=== PATIENT | male | born 1955 | race Caucasian/White ===

== ENCOUNTER 2020-04-15 08:10 | Outpatient (CLI) | payer BC, SELFPAY ==
[2020-04-15 08:20] LABS: Basophils Absolute Auto 0.03 K/mm3 (0.00-0.10); Basophils Percent Auto 0.5 % (0.0-1.0); Eosinophils Absolute Auto 0.12 K/mm3 (0.02-0.50); Eosinophils Percent Auto 1.9 % (1.0-6.0); Immature Granulocyte Absolute 0.03 K/mm3 (0.00-0.00); Immature Granulocyte Percent A 0.5 % (0.0-0.0); Lymphocytes Absolute Auto 1.82 K/mm3 (1.10-4.50); Lymphocytes Percent Auto 28.7 % (18.0-42.0); Mean Corpuscular HGB Conc 33.3 g/dL (32.0-36.0); Mean Corpuscular Hemoglobin 28.8 pg (27.0-31.0); Mean Corpuscular Volume 86.4 fL (78.0-102.0); Mean Platelet Volume 9.7 fl (8.7-11.0); Monocytes Absolute Auto 0.43 K/mm3 (0.10-0.90); Monocytes Percent Auto 6.8 % (2.0-11.0); Neutrophils Absolute Auto 3.9 K/mm3 (1.7-7.2); Neutrophils Percent Auto 61.6 % (50.0-70.0); Platelet Count Result 229 K/mm3 (150-420); Red Blood Count 4.86 M/mm3 (4.70-6.10); Red Cell Distribution Width 13.1 % (11.6-14.4); White Blood Count 6.3 K/mm3 (4.8-10.8)
[2020-04-15 09:33] LABS: Alanine Aminotransferase 46 U/L (16-63); Albumin Level 3.9 g/dL (3.4-5.0); Alkaline Phosphatase 98 U/L (46-116); Anion Gap 12.5 mmol/L (7-16); Aspartate Amino Transferase 20 U/L (15-37); Bilirubin,Total 0.3 mg/dL (0.00-1.00); Blood Urea Nitrogen 20 mg/dL (7-18); Calcium 8.8 mg/dL (8.5-10.1); Carbon Dioxide 30 mmol/L (21-32); Chloride 102 mmol/L (98-108); Estimated Glomerular Filt Rate > 60; Glucose 111 mg/dL (70-99); HDL Direct 39 mg/dL (40-60); Osmolality Calculated 293 mOsm/kg (285-295); Potassium 4.5 mmol/L (3.5-5.1); Prostate Specific Antigen 2.1 ng/mL (< OR = 4.0); Sodium 140 mmol/L (136-145); Thyroid Stimulating Hormone 1.66 uIU/mL (0.36-3.74); Total Protein 7.7 g/dL (6.4-8.2); Triglycerides 208 mg/dL (0-150)
[2020-04-15 09:47] LABS: Cholesterol 212 mg/dL (0-200); LDL Cholesterol Calculated 131 mg/dL (<130)
== END 2020-04-15 08:11 | disposition home or self-care (01) ==
PROVIDERS: PCP Nurse Practitioner Family; Visit Provider Nurse Practitioner Family
DX: R31.9 Hematuria, unspecified (principal); I10 Essential (primary) hypertension; E78.2 Mixed hyperlipidemia; Z12.5 Encounter for screening for malignant neoplasm of prostate; Z13.1 Encounter for screening for diabetes mellitus
CPT/HCPCS: 36415; 80053; 80061; 84153; 84443; 85025; G0103

== ENCOUNTER 2021-02-07 16:49 | Emergency (ER) | payer BC, SELFPAY ==
--- NOTE | ~2021-02-07 | XR_ITS ---
EXAMINATION: XR chest 1V portable EXAM DATE: 02/07/2021 17:13 INDICATION: Shortness of breath and chills. TECHNIQUE: Portable AP frontal chest x-ray was obtained. Comparison is made to prior examination from 03/23/2010. FINDINGS: There is moderate amount of bilateral ill-defined airspace disease, could be pneumonia or e steve. The cardiomediastinal silhouette is prominent but magnified on this AP technique. There is no pneumothorax suspected. There are no pleural effusions. There are no osseous abnormalities identified . IMPRESSION: Moderate amount of bilateral airspace disease likely pneumonia or edema. Recommend testin g for COVID 19. Reviewed, dictated and finalized at location A. IMPRESSION: Moderate amount of bilateral airspace disease likely pneumonia or e steve. Recommend testing for COVID 19.
--- NOTE | 2021-02-07 17:01 | ECG_ITS ---
Measurements Intervals Holder Rate: 78 P: 15 FL: 166 QRS: -18 QRSD: 96 T: 55 QT: 363 QTc: 415 Interpretive Statements SINUS RHYTHM INCOMPLETE RIGHT BUNDLE BRANCH BLOCK CANNOT RULE OUT SEPTAL INFARCT, AGE INDETERMINATE ABNORMAL ECG Electronically Signed On 02-07-2021 20:35:36 CDT by Uvaldo Appiah D.O.
[2021-02-07 17:03] VITALS: BP 141/64; PULSE 81; RESP 18; TEMP 36.1; O2SAT 95
--- NOTE | 2021-02-07 17:29 | ED.SOB ---
HPI - SOB/Dyspnea General Chief Complaint: Shortness of Breath/Dyspnea Stated Complaint: covid +/sob Time Seen by Provider: 02/07/21 17:07 Source: patient Mode of arrival: ambulatory Limitations: no limitations History of Present Illness HPI Narrative: This is a 65-year-old male that presents the emergency department for shortness of breath. Reports he has had cold symptoms over the last week. Reports fever, chills, cough, vomiting, and diarrhea. Reports he tested positive for Covid 4 days ago. Reports he has had worsening shortness of breath which prompted him to be seen. Reports chest pain with coughing. Denies lower extremity edema. Related Data Allergies Allergy/AdvReac Type Severity Reaction Status Date / Time No Known Allergies Allergy Unknown Verified 02/07/21 17:37 Review of Systems Review of Systems: Narrative: CONSTITUTIONAL: Reports fever, chills CARDIOVASCULAR: Reports chest pain. Denies edema. RESPIRATORY: Reports cough and dyspnea. GASTROINTESTINAL: Reports nausea, vomiting, and diarrhea. MUSCULOSKELETAL: Reports myalgia. All systems reviewed & are unremarkable except as noted in HPI and below PMFSH Past Medical History Medical History (Updated 02/07/21 @ 19:25 by Maddie Richardson PA-C) Mixed hyperlipidemia Family History Family History Father Carcinoma of colon Grandparent Family history of lung cancer Diabetes mellitus Sibling Family history of lymphoma Social History Social History Smoking status: Smoker, status unknown Alcohol intake: current Exam Narrative: Exam Narrative: GENERAL: Well-appearing, well-nourished, and in no acute distress. HEAD: Normocephalic, atraumatic. EYES: EOMI. ENT: Nares clear, no rhinorrhea or epistaxis. Mucous membranes moist. Oropharynx without tonsillar hypertrophy exudate or other lesions. Bilateral TMs pearly yanez non-bulging NECK: Supple. No adenopathy or masses. CHEST: Clear to auscultation. No respiratory distress. No wheezes rales or rhonchi HEART: Regular rate and rhythm. No murmur heard. Normal peripheral pulses. ABDOMEN: Soft, nontender, nondistended, normal active bowel sounds. EXTREMITIES: Normal range of motion. No edema. SKIN: Warm, dry, no rash. NEURO: No focal deficits. Alert and oriented x3. PSYCH: Normal mood and affect Course Consultations Consultation #1: Spoke with his primary about work-up as patient might qualify for monoclonal antibody therapy. Patient is to follow-up for this. Date: 02/07/21 Time: 19:25 Vital Signs Vital signs: Vital Signs Temperature 97.0 F L 02/07/21 17:03 Pulse Rate 81 02/07/21 17:03 Respiratory Rate 18 02/07/21 17:03 Blood Pressure 141/64 H 02/07/21 17:03 Pulse Oximetry 95 02/07/21 17:03 Temperature 97.8 F 02/07/21 19:09 Pulse Rate 79 02/07/21 19:09 Respiratory Rate 14 02/07/21 19:09 Blood Pressure 139/72 02/07/21 19:09 Pulse Oximetry 96 02/07/21 19:09 MDM - SOB/Dyspnea MDM Narrative Medical decision making narrative: Patient presents to the emergency department for worsening shortness of breath. Recently diagnosed with Covid. He is afebrile and nontoxic-appearing. Oxygen saturation has remained normal on room air. CBC without leukocytosis. Metabolic panel does show mild transaminitis, likely due to coronavirus. Lactic acid is normal. UA without evidence of infection. D-dimer and troponin are not elevated. EKG without concerning changes. Chest x-ray does show moderate bilateral airspace opacities consistent with Covid pneumonia. Patient lightly hydrated while in the ED. He is stable and felt appropriate for further outpatient evaluation. Spoke with his primary about work-up as patient might qualify for monoclonal antibody therapy. Patient is to follow-up for this. He was given warnings to return to the ER Lab Data Attestation: I reviewed the patient's
[2021-02-07 17:34] VITALS: BP 134/76; PULSE 80; PULSE 81; RESP 12; TEMP 36.6; O2SAT 96
[2021-02-07 17:43] LABS: Hemoglobin 14.1 g/dL (14.0-18.0); Mean Corpuscular HGB Conc 33.6 g/dl (32-36); Mean Corpuscular Hemoglobin 28.1 pg (26-34); Mean Corpuscular Volume 83.7 fl (80-100); Mean Platelet Volume 10.2 fl (7.4-10.4); Platelet Count Result 169 k/mm3 (150-375); Red Blood Count 5.02 M/mm3 (4.6-6.20); Red Cell Distribution Width 13.1 % (11.5-14.5); White Blood Count 5.5 K/mm3 (4.5-10.0)
[2021-02-07 17:48] LABS: INR 0.9; Prothrombin Time 12.3 Seconds (11.1-14.7)
[2021-02-07 17:53] LABS: Lactic Acid Reflex 0.8 mmol/L (0.7-2.1)
[2021-02-07 17:59] LABS: Band Neutrophils Percent 15 % (0-6); Monocytes Absolute Manual 0.22 K/mm3 (0.1-0.90); Monocytes Percent Manual 4 % (3-9); Neutrophils Absolute Manual 4.18 K/mm3 (1.3-6.7); Neutrophils Percent Manual 61 % (46-73); Platelet Estimate Adequate (Adequate); Total Cells Counted 100
[2021-02-07 18:20] LABS: Potassium 4.6 mmol/L (3.4-5.0)
[2021-02-07 18:21] LABS: D Dimer 0.31 ug/mL (<0.48)
[2021-02-07 18:25] LABS: Alanine Aminotransferase 104 U/L (4-50); Albumin Level 4.2 g/dL (3.5-5.1); Alkaline Phosphatase 69 U/L (38-126); Anion Gap 6 mmol/L (8-16); Aspartate Amino Transferase 95 U/L (17-59); Bilirubin,Total 0.2 mg/dL (0.2-1.3); Blood Urea Nitrogen 10 mg/dL (9-20); CRP 7.3 mg/dL (<1.0); Calcium 8.7 mg/dL (8.4-10.2); Carbon Dioxide 32 mmol/L (22-30); Chloride 95 mmol/L (98-107); Estimated CRCL calculation 103 ml/min; Estimated Glomerular Filt Rate > 60; Glucose 116 mg/dL (75-110); Sodium 133 mmol/L (137-145)
[2021-02-07 18:31] LABS: NT Pro B Type Natriuretic Pept 39 PG/ML (5-100); Troponin I < 0.012 ng/mL (0.000-0.034)
[2021-02-07 18:32] VITALS: BP 148/75; PULSE 82; RESP 13; TEMP 36.6; O2SAT 96
[2021-02-07] MEDS: SODIUM CHLORIDE 0.9% IV 500 ML 999 ML IV CONT (19:05)
[2021-02-07 19:06] LABS: Add Urine Microscopic? YES; Appearance Urine Cloudy (Clear); Bacteria Urine Trace /hpf; Bilirubin Urine Negative (Negative); Blood Urine Negative (Negative); Color Urine Yellow (Yellow); Glucose Urine UA Negative (Negative); Ketones Urine Negative (Negative); Leukocyte Esterase Ur Negative LEU/UL (Negative); Mucus Urine Heavy /lpf; Nitrate Urine Negative (Negative); Protein Urine 2+ mg/dL (Negative); RBC Urine 0-2 /hpf (0-2); Specific Grav Ur 1.024 (1.001-1.035); Urobilinogen Urine Negative mg/dL (<2.0); WBC Urine 0-3 /hpf
[2021-02-07 19:09] VITALS: BP 139/72; PULSE 79; RESP 14; TEMP 36.6; O2SAT 96
[2021-02-07 19:52] VITALS: BP 150/80; PULSE 86; RESP 18; TEMP 36.6; O2SAT 96
== END 2021-02-07 19:52 | disposition home or self-care (01) ==
PROVIDERS: Physician Assistant; Emergency Provider Emergency Medicine; PCP Family Medicine
DX: U07.1 COVID-19 (principal); J12.82 Pneumonia due to coronavirus disease 2019; E78.2 Mixed hyperlipidemia; I45.10 Unspecified right bundle-branch block; R94.31 Abnormal electrocardiogram [ECG] [EKG]
CPT/HCPCS: 36415; 71045; 80053; 81001; 83605; 83880; 84484; 85025; 85380; 85610; 85730; 86140; 87040; 93005; 96360; 99284; J7040

== ENCOUNTER 2021-05-18 06:45 | Outpatient (CLI) | payer MEDICARE, SELFPAY ==
[2021-05-18 07:57] LABS: Glucose 111 mg/dL (75-110)
[2021-05-21 12:49] LABS: Testosterone Free 44.1 pg/mL (35.0-155.0); Testosterone Total 191 ng/dL (250-1100)
== END 2021-05-18 06:46 | disposition home or self-care (01) ==
LOC: ANHLAB 06:49
PROVIDERS: PCP Family Medicine; Visit Provider Nurse Practitioner Family
DX: R73.09 Other abnormal glucose (principal)
CPT/HCPCS: 36415; 82947; 84402; 84403

== ENCOUNTER → 2021-05-21 02:27 | Outpatient (CLI) | payer MEDICARE, SELFPAY ==
[2021-05-21 17:20] LABS: SARS-CoV-2 RNA PCR Negative
== END ==
PROVIDERS: PCP Family Medicine; Visit Provider Internal Medicine Gastroenterology
DX: Z01.812 Encounter for preprocedural laboratory examination (principal); Z20.822 Contact with and (suspected) exposure to COVID-19
CPT/HCPCS: C9803; U0003; U0005

== ENCOUNTER 2021-05-24 02:30 | Day surgery (SDC) | payer MEDICARE, SELFPAY ==
[2021-05-03 11:46] VITALS: BMI 31.6
[2021-05-24 06:56] VITALS: BP 177/83; PULSE 69; RESP 20; TEMP 35.9; O2SAT 99; BMI 31.3
[2021-05-24] MEDS: LACTATED RINGERS 1,000 ML 150 ML IV CONT (07:11)
--- NOTE | 2021-05-24 07:15 | WPDANESEPPF ---
Anes - Initial Pre Proc Eval Procedure: Operation Date: 05/24/21 08:00 Proposed Procedures p Screening Colonoscopy - Stewart Smart MD Date/Time: 05/24/21 07:15 Surgeon: Stewart Smart MD Pre Op Diagnosis: neoplasm screening Patient Data Age: 66 Gender: M Height: 1.83 m Weight: 104.8 kg Last Vital Signs Temp 35.9 C L 05/24/21 06:56 Pulse 69 05/24/21 06:56 Resp 20 05/24/21 06:56 BP 177/83 H 05/24/21 06:56 Pulse Ox 99 05/24/21 06:56 Allergies Allergy/AdvReac Type Severity Reaction Status Date / Time No Known Allergies Allergy Unknown Verified 05/24/21 06:55 Home Medications Medication Instructions Recorded Confirmed Type No Home Medications 05/24/21 05/24/21 History Patient hx anesthesia problems: none Family hx anesthesia problems: none PMFSH Past Medical History Medical History Apnea BMI 31.0-31.9,adult Mixed hyperlipidemia Screen for colon cancer Screening for lipid disorders Family History Family History Father Carcinoma of colon Grandparent Family history of lung cancer Diabetes mellitus Sibling Family history of lymphoma Social History Social History Smoking packs per day: 0.5 Smoking cigarettes per day: 10.0 Years smoked: 20 Smoking pack-years: 10.00 Smoking status: Former smoker Alcohol intake: current Drinks per week: 10 Substance use: current Substance use type: marijuana Living arrangements: with family Spiritual care concerns: No Anes - Eval Final PreProcedure Day of Procedure 05/24/21 07:15 Patient weight: obese Heart: regular rate and rhythm Lungs: clear to auscultation Airway: Mallampati scale class 1 Neurological: alert and oriented Last oral intake: >/= 8 hours ASA classification: II Emergent: no Anesthetic plan: proceed Anesthesia type and monitoring: general GIVS and standard monitoring Informed Consent: The patient's anesthetic plan and its attendant risks and benefits were discussed with the patient/family/POA. Questions were solicited and answers provided to the satisfaction of the patient/family/POA.
--- NOTE | 2021-05-24 07:44 | PM.HPGS ---
History of Present Illness History of Present Illness Consent: Risks, benefits, and alternatives have been discussed and questions answered. Patient agrees to proceed with procedure. Chief complaint: neoplasm screening Narrative: Nikolay Ragland is a 66 year old male Referred for colon cancer screening Review of Systems Review of Systems: All systems reviewed & are unremarkable except as noted in HPI and below PMFSH Past Medical History Medical History Apnea BMI 31.0-31.9,adult Mixed hyperlipidemia Screen for colon cancer Screening for lipid disorders Family History Family History Father Carcinoma of colon Grandparent Family history of lung cancer Diabetes mellitus Sibling Family history of lymphoma Social History Social History Smoking packs per day: 0.5 Smoking cigarettes per day: 10.0 Years smoked: 20 Smoking pack-years: 10.00 Smoking status: Former smoker Alcohol intake: current Drinks per week: 10 Substance use: current Substance use type: marijuana Living arrangements: with family Spiritual care concerns: No Meds Home Medications and Allergies Home Medications Medication Instructions Recorded Confirmed Type No Home Medications 05/24/21 05/24/21 History Allergies Allergy/AdvReac Type Severity Reaction Status Date / Time No Known Allergies Allergy Unknown Verified 05/24/21 06:55 Vital Signs Vital Signs - 24 hr 05/24/21 06:56 Temperature 35.9 C L Pulse Rate 69 Respiratory Rate 20 Blood Pressure 177/83 H Pulse Oximetry 99 Exam Const: General: alert Orientation/consciousness: patient oriented x3 Resp: Auscultation: clear to auscultation bilaterally Cardio: Rhythm: regular rhythm GI: GI Palp: Yes Soft to palpation and No Tenderness to palpation present (GI) Neuro: General: patient oriented x3 Assessment and Plan Assessment and plan (1) Screen for colon cancer: Code(s): Z12.11 - Encounter for screening for malignant neoplasm of colon Status: Acute Assessment and Plan: Colonoscopy with possible biopsy or polypectomy or cautery or injection of substances.
[2021-05-24] MEDS: SIMETHICONE ORAL SUSPENSION 20 MG/0.3 ML 30 ML BOTTLE 0.6 ML IRRIGATION (08:08)
[2021-05-24 08:19] VITALS: BP 125/66; PULSE 61; RESP 15; O2SAT 94
[2021-05-24 08:29] VITALS: BP 126/75; PULSE 64; RESP 20; O2SAT 95
[2021-05-24 08:39] VITALS: BP 135/76; PULSE 62; RESP 11; O2SAT 97
== END 2021-05-24 09:03 | disposition home or self-care (01) ==
PROVIDERS: PCP Family Medicine; Visit Provider Internal Medicine Gastroenterology
PROC: 0DJD8ZZ Inspection of Lower Intestinal Tract, Via Natural or Artificial Opening Endoscopic (ICD-10-PCS; CPT 45378; principal; 2021-05-24 08:00)
DX: Z12.11 Encounter for screening for malignant neoplasm of colon (principal); K57.30 Diverticulosis of large intestine without perforation or abscess without bleeding; K62.1 Rectal polyp; E78.2 Mixed hyperlipidemia; Z87.891 Personal history of nicotine dependence; F12.90 Cannabis use, unspecified, uncomplicated; E66.9 Obesity, unspecified; Z68.31 Body mass index [BMI] 31.0-31.9, adult
CPT/HCPCS: 45385; 88305; C9803; J2001; J2704; J7120; U0003; U0005

== ENCOUNTER → 2021-12-01 10:14 | Outpatient (CLI) | payer MEDICARE, SELFPAY ==
--- NOTE | ~2021-12-01 | XR_ITS ---
XR lumbar spine 2-3V DATE: 12/01/2021 10:37 INDICATION: Low back pain, sciatica TECHNIQUE: AP, lateral, coned lateral lumbosacral views COMPARISON: None FINDINGS: There is diffuse osteopenia. There is moderately prominent degenerative disc disease at L5-S1 with minimal retrolisthesis. The lum bar interspaces otherwise are well preserved. No fracture or bone destruction or spondylolisthesis. The included lower thoracic and lumbar pedicles are intact. The sacroiliac joints appear normal. IMPRESSION: Moderately prominent degenerative disc disease and minimal retrolisthesis at L5-S1 Reviewed, dictated and finalized at location A. SETTER IMPRESSION: Moderately prominent degenerative disc disease and minimal retrolis thesis at L5-S1
== END ==
PROVIDERS: PCP Nurse Practitioner Family; Visit Provider Nurse Practitioner Family
DX: M54.40 Lumbago with sciatica, unspecified side (principal); M47.817 Spondylosis without myelopathy or radiculopathy, lumbosacral region
CPT/HCPCS: 72100

== ENCOUNTER 2021-12-14 08:59 | Outpatient (RCR) | payer MEDICARE, SELFPAY ==
--- NOTE | 2021-12-14 10:13 | PTOPEVAL ---
Thank you for referring Nikolay Ragland to [facility].? The patient is scheduled to be seen for therapy? ____x/week for ___ weeks. Please review, sign, date and return this plan of care TATY. I agree with and certify that the following plan of care is medically necessary. Referring Physician Date Admitting Provider: Attending Provider: Jerica Viveros NP Referring Provider: YOLANDE Outpatient Evaluation Start: 12/14/21 08:34 Freq: Status: Active Protocol: Document 12/14/21 09:03 ACR (Rec: 12/14/21 10:12 ACR [id number]) Therapy Assessment Status Assessment Status Assessment Status Evaluation Outpatient Past Medical History Neurological History Hx Neurological Disorders No Significant History Cardiovascular History Hx Hypercholesterolemia Yes Hx Hypertension Yes Respiratory History Hx Bronchitis Yes Gastrointestinal History Hx Hepatitis Yes Genitourinary History Hx Benign Prostatic Hyperplasia Yes Musculoskeletal History Hx Arthritis Yes Hematological History Hx Hematological Disorders No Significant History Endocrine History Hx Endocrine Disorders No Significant History HEENT History Hx HEENT Disorders No Significant History Integumentary History Hx Shingles Yes Reproductive History Hx Reproductive Disorders No Significant History Psychosocial History Hx Depression Yes Pain History History of Any Previous or Ongoing No Significant History Instance of Pain Anesthesia History Hx Anesthesia Reactions No Significant History Evaluation Information Problem Diagnosis LBP, L sciatica Onset 12/04/21 Subjective Information Patient states that since the Query Text:As Reported By Patient/ end of October he has had Family back pain and some sciatic like symptoms. He states that he was moving a [employer] and thinks his pain could have started from that. He states that he has difficulty putting on his socks, sit for a period of time, and sleeping . He states that the only way he can sleep is when he takes his pain medication. He states that he stretches throughout the day and it helps a little bit, but the pain is constant. He states that walking is when his back feels the best.
== END 2022-01-18 23:59 | disposition home or self-care (01) ==
LOC: CHSPT 08:59
PROVIDERS: Visit Provider Nurse Practitioner Family
DX: M54.40 Lumbago with sciatica, unspecified side (principal)
CPT/HCPCS: 97012; 97014; 97110; 97140; 97161; G0283

== ENCOUNTER 2022-12-17 04:54 | Emergency (ER) | payer MEDICARE, SELFPAY ==
[2022-12-17 05:01] VITALS: BP 180/90; PULSE 90; RESP 20; TEMP 36.6; O2SAT 99
[2022-12-17 05:15] LABS: Add Urine Microscopic? YES; Appearance Urine Clear (Clear); Bilirubin Urine Negative (Negative); Blood Urine 2+ (Negative); Color Urine Light Yellow (Yellow); Glucose Urine UA Negative (Negative); Ketones Urine Negative (Negative); Leukocyte Esterase Ur Negative (Negative); Nitrate Urine Negative (Negative); Protein Urine Negative (Negative); Specific Grav Ur <= 1.005 (1.010-1.020); Urobilinogen Urine 0.2 mg/dL (0.2-1.0); pH Urine 5.5 (5.0-8.0)
[2022-12-17 05:21] LABS: Bacteria Urine None seen /hpf; Squamous Epithelial Cell Urine None seen /hpf (Few); WBC Urine 0-3 /hpf (0-3)
[2022-12-17 05:24] VITALS: BP 140/90; PULSE 90; RESP 20; O2SAT 97
--- NOTE | 2022-12-17 05:35 | ED.MALEGU ---
HPI - Male Genitourinary General Chief complaint: Urogenital-Male Stated complaint: Urinary Retention Source: patient Mode of arrival: ambulatory Limitations: no limitations History of Present Illness HPI Narrative: 67 year old male presents to the Emergency Department complaining of unable to urinate. Has been dribbling small amounts since last night. Onset (ago): hour(s) Severity: severe Relieving factors: urination Exacerbating factors: none Associated symptoms: Reports denies other symptoms Related Data Sexually active: No Allergies Allergy/AdvReac Type Severity Reaction Status Date / Time No Known Allergies Allergy Unknown Verified 12/20/21 10:59 Review of Systems Review of Systems: All systems reviewed & are unremarkable except as noted in HPI and below Constitutional: Constitutional: Reports as per HPI, Denies chills and Denies fever(s) Eyes: Eyes: Reports as per HPI and Reports no additional eye complaints ENT: Reports system reviewed and no additional complaints, except as documented Cardiovascular: Cardiovascular: Reports as per HPI and Denies chest pain Respiratory: Respiratory: Reports as per HPI and Denies dyspnea Gastrointestinal: Gastrointestinal: Reports as per HPI, Reports abdominal pain, Denies diarrhea, Denies nausea and Denies vomiting Genitourinary: Genitourinary: Reports no additional male genitourinary complaints and Reports oliguria Comments: unable to urinate Musculoskeletal: Musculoskeletal: Reports no additional musculoskeletal complaints, Denies back pain and Denies myalgias Integumentary/Breasts: Skin/Breast: Reports system reviewed and no additional complaints, except as docu and Denies rash Neurologic: Reports system reviewed and no additional complaints, except as documented, Denies focal weakness, Denies numbness and Denies weakness Psychiatric: Psychiatric: Reports no additional psychiatric complaints Endocrine: Endocrine: Reports no additional endocrine complaints Hematologic/Lymphatic: Hematologic/Lymphatic: Reports no additional hematologic/lymphatic complaints Allergic/Immunologic: Allergic/Immunologic: Reports no additional allergic/immunologic complaints [facility] Past Medical History Medical History Apnea BMI 28.0-28.9,adult BMI 30.0-30.9,adult BMI 31.0-31.9,adult Mixed hyperlipidemia Screen for colon cancer Screening for lipid disorders Family History Family History Father Carcinoma of colon Grandparent Family history of lung cancer Diabetes mellitus Sibling Family history of lymphoma Mother Cerebrovascular accident Sibling Heart disease Social History Social History Smoking packs per day: 0.5 Smoking cigarettes per day: 10.0 Years smoked: 20 Smoking pack-years: 10.00 Second hand tobacco smoke exposure: Yes Alcohol intake: current Drinks per week: 10 Substance use: current Substance use type: marijuana Living arrangements: alone Occupation/Education: retired Additional occupation/education comments: [employer] Gender identity (if verbalized by the patient): Male Spiritual care concerns: No Exam Const: General: healthy appearing Nutritional Appearance: obese Limitations: no limitations HENMT: Head: normal to inspection Face/Nose/Sinus: Normal external nose present Face and sinus: normal facial exam Mouth: Yes Normal oral and palatal mucosa present Eyes: Conjunctivae: conjunctivae normal Pupils: Equal, round and reactive pupils present EOM: EOMs intact bilaterally Direct Ophthalmoscopy: no photophobia Neck: Neck: normal visual inspection Chest: Chest palpation & inspection: normal inspection of the chest Resp: Effort & Inspection: normal respiratory effort Cardio: Rate: regular rate GI: GI Palp: Yes
[2022-12-17 05:54] VITALS: BP 138/90; PULSE 89; RESP 18; TEMP 37.2; O2SAT 98
== END 2022-12-17 05:58 | disposition home or self-care (01) ==
PROVIDERS: Emergency Provider Emergency Medicine; PCP Family Medicine
DX: R33.9 Retention of urine, unspecified (principal); E78.2 Mixed hyperlipidemia; I10 Essential (primary) hypertension; F17.210 Nicotine dependence, cigarettes, uncomplicated
CPT/HCPCS: 51702; 81001; 99283

== ENCOUNTER 2022-12-17 13:53 | Emergency (ER) | payer MEDICARE, SELFPAY ==
[2022-12-17 14:10] VITALS: BP 198/82; PULSE 100; RESP 18; TEMP 36.6; O2SAT 97
--- NOTE | 2022-12-17 14:24 | PC.NURSE ---
Irrigated bladder with 120 ml of normal saline. Catheter emptied 120 ml of fluid
--- NOTE | 2022-12-17 14:25 | ED.MALEGU ---
HPI - Male Genitourinary General Chief complaint: Urogenital-Male Stated complaint: catheter issues Time Seen by Provider: 12/17/22 14:09 History of Present Illness HPI Narrative: Patient is a 67-year-old male here for evaluation of his Singh catheter. Patient states that he had the Singh catheter placed in the ER at [place] yesterday due to urinary retention. States that at that time he was unable to urinate over the past day and had over 1000 cc of fluid in his bladder. He had the Singh placed with great improvement of his symptoms and was told to follow-up with his PCP. Patient has never had a catheter in the past. He presents today due to concerns over catheter placement. Patient states that when he attempts to push out urine urine does not drain. Catheter has been draining spontaneously but he is concerned that this is not timed with his attempts at pushing out urine. He denies any abdominal pain, fevers or chills, nausea or vomiting. Related Data Allergies Allergy/AdvReac Type Severity Reaction Status Date / Time No Known Allergies Allergy Unknown Verified 12/20/21 10:59 [facility] Past Medical History Medical History Apnea BMI 28.0-28.9,adult BMI 30.0-30.9,adult BMI 31.0-31.9,adult Mixed hyperlipidemia Screen for colon cancer Screening for lipid disorders Family History Family History Father Carcinoma of colon Grandparent Family history of lung cancer Diabetes mellitus Sibling Family history of lymphoma Mother Cerebrovascular accident Sibling Heart disease Social History Social History Smoking packs per day: 0.5 Smoking cigarettes per day: 10.0 Years smoked: 20 Smoking pack-years: 10.00 Second hand tobacco smoke exposure: Yes Alcohol intake: current Drinks per week: 10 Substance use: current Substance use type: marijuana Living arrangements: alone Occupation/Education: retired Additional occupation/education comments: [employer] Gender identity (if verbalized by the patient): Male Spiritual care concerns: No Exam Narrative: APPEARANCE: Well appearing, no pain in distress, well-nourished. Head: Normocephalic and atraumatic. EYES: PERRLA/EOMI, conjunctivae clear NOSE: No nasal drainage EARS: External ear normal in appearance THROAT: Oropharynx is clear. Mucous membranes are moist. NECK: Supple. No adenopathy, no masses. RESPIRATORY: Airway patent, respirations nonlabored. Clear to auscultation bilaterally, no rales, rhonchi, wheezing. : Catheter in place draining yellow urine. CARDIOVASCULAR: Regular rate and rhythm without murmurs, rubs, or gallops. ABDOMINAL: Normoactive bowel sounds. Soft, nontender, nondistended. No rebound tenderness or guarding. MUSCULOSKELETAL: Extremities are warm and well-perfused. Moves all extremities well. No edema. NEURO: Normal speech. No focal neurologic deficits. SKIN: Skin is warm and dry. No rashes. PSYCHIATRIC: Normal affect/mood.. Course Vital Signs Vital signs: Vital Signs Temperature 97.9 F 12/17/22 14:10 Pulse Rate 100 12/17/22 14:10 Respiratory Rate 18 12/17/22 14:10 Blood Pressure 198/82 H 12/17/22 14:10 Pulse Oximetry 97 12/17/22 14:10 Oxygen Delivery Room Air 12/17/22 14:10 Temperature 97.9 F 12/17/22 14:10 Pulse Rate 100 12/17/22 14:10 Respiratory Rate 18 12/17/22 14:10 Blood Pressure 198/82 H 12/17/22 14:10 Pulse Oximetry 97 12/17/22 14:10 Oxygen Delivery Room Air 12/17/22 14:10 MDM - Male Genitourinary MDM Narrative Medical decision making narrative: 67-year-old male here due to concerns over incomplete singh empyting. His Singh is draining here, it was flushed with good return, bladder scan reveals less than 20 cc of fluid in the bladder. Educated patient
== END 2022-12-17 14:38 | disposition home or self-care (01) ==
LOC: ANHED 14:29
PROVIDERS: Emergency Provider Emergency Medicine; PCP Family Medicine
DX: Z46.6 Encounter for fitting and adjustment of urinary device (principal); E78.2 Mixed hyperlipidemia; I10 Essential (primary) hypertension; F17.210 Nicotine dependence, cigarettes, uncomplicated
CPT/HCPCS: 99282

== ENCOUNTER 2023-03-21 08:48 | Emergency (ER) | payer MEDICARE, SELFPAY ==
[2023-03-21 08:54] VITALS: BP 156/95; PULSE 75; RESP 17; TEMP 36.6; O2SAT 96
--- NOTE | 2023-03-21 09:05 | ED.GENADULT ---
HPI - General Adult General Chief complaint: Back Pain/Injury Stated complaint: Back pain Time Seen by Provider: 03/21/23 09:00 Source: patient Mode of arrival: ambulatory Limitations: no limitations History of Present Illness HPI narrative: 68-year-old white male complains of chronic back pain he aggravated the 2 weeks ago. Her raise to his left leg was worse last night 8/ he has been taking Tylenol and ibuprofen. Saw the chiropractor yesterday and got some manipulation and acupuncture. Denies any numbness tingling weakness problems voiding. denies any rash or itching bleeding or bruising lumps or bumps cough fever sore throat runny nose. Review of old records showed he was at the urologist's and his primary care doctor's office earlier in February for urinary retention after taking some cocaine. No new problems urinating now. Related Data Allergies Allergy/AdvReac Type Severity Reaction Status Date / Time No Known Allergies Allergy Unknown Verified 03/21/23 08:53 [facility] Past Medical History Medical History (Updated 03/21/23 @ 09:22 by Kvng Huddleston MD) Apnea BMI 28.0-28.9,adult BMI 30.0-30.9,adult BMI 31.0-31.9,adult Mixed hyperlipidemia Screen for colon cancer Screening for lipid disorders Strain of lumbar region Family History Family History Father Carcinoma of colon Grandparent Family history of lung cancer Diabetes mellitus Sibling Family history of lymphoma Mother Cerebrovascular accident Sibling Heart disease Social History Social History Smoking packs per day: 0.5 Smoking cigarettes per day: 10.0 Years smoked: 20 Smoking pack-years: 10.00 Smoking status: Former smoker Second hand tobacco smoke exposure: Yes Alcohol intake: current Drinks per week: 10 Substance use: current Substance use type: marijuana Living arrangements: alone Occupation/Education: retired Additional occupation/education comments: [employer] Gender identity (if verbalized by the patient): Male Spiritual care concerns: No Exam Narrative: White male no apparent distress.? Normocephalic atraumatic eyes conjunctiva pink sclera nonicteric.? Neck is supple no lymphadenopathy nontender full range of motion.? Back is nontender.? Chest nontender.? Lungs are clear without wheezes rales or rhonchi.? Heart is regular rate rhythm without murmurs gallops or rubs.? Extremities no cyanosis clubbing or edema.? Neurological she is alert and oriented x4 motor and sensory grossly intact.? Skin is warm and dry without lesions. Back nontender full range of motion deep tender reflexes are +2 for lower extremities. Course Vital Signs Vital signs: Vital Signs Temperature 36.6 C 03/21/23 08:54 Pulse Rate 75 03/21/23 08:54 Respiratory Rate 17 03/21/23 08:54 Blood Pressure 156/95 H 03/21/23 08:54 Pulse Oximetry 96 03/21/23 08:54 Oxygen Delivery Room Air 03/21/23 08:54 Temperature 36.6 C 03/21/23 08:54 Pulse Rate 75 03/21/23 08:54 Respiratory Rate 17 03/21/23 08:54 Blood Pressure 156/95 H 03/21/23 08:54 Pulse Oximetry 96 03/21/23 08:54 Oxygen Delivery Room Air 03/21/23 08:54 Medical Decision Making MDM Narrative Medical decision making narrative: Independent Historian: Differential Dx includes but not limited to: LS strain acute on chronic back pain, degenerative disc disease, slip disc Independently Reviewed by me: External Source Review: old records from primary care office was reviewed Shared decision Making: discussed evaluation all questions were asked and answered and patient agree with plan Discussed with patient given Toradol shot 30 mg IM Vital Signs Vital Signs: Vital Signs Temperature 36.6 C 03/21/23 08:54 Pulse Rate 75 03/21/23 08:54 Respiratory Rate 17 0
[2023-03-21] MEDS: KETOROLAC 30 MG/ML VIAL (*BKC) IM (09:19)
[2023-03-21 09:35] VITALS: BP 153/77; PULSE 67; RESP 17; TEMP 36.7; O2SAT 95
== END 2023-03-21 09:35 | disposition home or self-care (01) ==
PROVIDERS: Emergency Provider Emergency Medicine; PCP Family Medicine
DX: S39.012A Strain of muscle, fascia and tendon of lower back, initial encounter (principal); M54.42 Lumbago with sciatica, left side; E78.2 Mixed hyperlipidemia; Z87.891 Personal history of nicotine dependence; X58.XXXA Exposure to other specified factors, initial encounter
CPT/HCPCS: 96372; 99283; J1885

== ENCOUNTER 2023-03-27 03:26 | Emergency (ER) | payer MEDICARE, SELFPAY ==
--- NOTE | ~2023-03-27 | CT_ITS ---
Noncontrast CT scan of the lumbar spine CLINICAL HISTORY: Back pain TECHNIQUE: Axial noncontrast imaging of the lumbar spine was performed. Sagittal and coronal reformat paco images were constructed. Dose reduction technique was used on this scan by utilizing automated ex posure control and iterative reconstruction technique. The dose-length product (DLP) was 1130.53 mGy- cm. FINDINGS: There is no fracture of the lumbar spine. Minimal grade 1 retrolisthesis of L5 over S1 note d. Intervertebral disc spaces are relatively well preserved throughout the lumbar spine. At L1-L2, there is no disc bulge or herniation. There is minimal facet joint degenerative change. No spinal canal stenosis or neural foraminal narrowing. At L2-L3, there is no significant disc bulge or herniation. There is minimal facet joint degenerative change. No spinal canal stenosis or neural foraminal narrowing identified. At L3-L4, there is no significant disc bulge or herniation. There is no spinal canal stenosis or neur al foraminal narrowing. At L4-L5, there is probable minimal disc bulge and mild facet arthropathy. No pippa spinal canal sten osis. There is mild to moderate left neural foraminal narrowing. Right neural foramen preserved. At L5-S1, there is minimal disc bulge. No spinal canal stenosis. There is moderate to severe bilatera l neural foraminal narrowing, left worse than right. Paravertebral soft tissues are unremarkable. Impression: Moderate to severe bilateral neural foraminal narrowing at L5-S1, left worse than right. Mild to moderate left neural foraminal narrowing at L4-L5. Reviewed, dictated and finalized at [facility]. Impression: Moderate to severe bilateral neural foraminal narrowing at L5-S1, left worse th an right. Mild to moderate left neural foraminal narrowing at L4-L5.
[2023-03-27 03:29] VITALS: BP 175/103; PULSE 84; RESP 18; TEMP 36.4; O2SAT 96
--- NOTE | 2023-03-27 03:55 | ED.GENADULT ---
HPI - General Adult General Chief complaint: Back Pain/Injury Stated complaint: Back Pain Time Seen by Provider: 03/27/23 03:30 History of Present Illness HPI narrative: the patient is a 68-year-old male with history of low back pain or for some time, with acute exacerbations most recently starting March 10, 2023. He saw a chiropractor on March 20, 2023 and had acupuncture therapy. He continued to have pains he was seen in the emergency room on 03/21/2023. At that time, he received a Toradol injection and was discharged home on prednisone and tramadol. He did have diclofenac from a previous prescription. He has been using those, prednisone tramadol and diclofenac for the last week without much relief of his pain. The pain originates in the lower back and radiates down the left leg with associated tingling and numbness extending to the left ankle. The pain is constant, waxes and wanes in intensity. He did lift some brush several weeks ago which may have exacerbated his pain. No falls or trauma to that area. Is due to see his primary care provider in 1 weeks time for further management of this. No saddle anesthesia. No incontinence of urine or stool to suggest cauda equina syndrome. He did drive himself here to the ED tonight. Related Data Allergies Allergy/AdvReac Type Severity Reaction Status Date / Time No Known Allergies Allergy Unknown Verified 03/27/23 03:29 Review of Systems Review of Systems: All systems reviewed & are unremarkable except as noted in HPI and below Constitutional: Constitutional: Denies chills, Denies excessive sweating, Denies fatigue, Denies fever(s), Denies headache(s) and Denies weakness Eyes: Eyes: Denies change in vision and Denies photophobia ENT: Denies dysphagia, Denies dizziness, Denies headache(s), Denies lip swelling, Denies nasal congestion, Denies sore throat and Denies tongue swelling Cardiovascular: Cardiovascular: Denies chest pain, Denies syncope, Denies rapid heart rate and Denies dyspnea Respiratory: Respiratory: Denies cough, Denies dyspnea and Denies wheezing Gastrointestinal: Gastrointestinal: Denies abdominal pain, Denies constipation, Denies dysphagia, Denies diarrhea, Denies nausea and Denies vomiting Genitourinary: Genitourinary: Denies hematuria, Denies dysuria, Denies urinary frequency and Denies urinary urgency Musculoskeletal: Musculoskeletal: Reports back pain (with sciatica down left leg), Denies myalgias, Denies arthralgias, Denies joint swelling and Reports numbness (from left back pain) Integumentary/Breasts: Skin/Breast: Denies pruritus, Denies erythema and Denies rash Neurologic: Denies confusion, Denies dizziness, Denies syncope, Denies headache(s), Denies focal weakness, Reports numbness (from left sided sciatica) and Denies weakness Psychiatric: Psychiatric: Denies anxiety and Denies confusion Endocrine: Endocrine: Denies excessive sweating and Denies fatigue Hematologic/Lymphatic: Hematologic/Lymphatic: Denies easy bleeding and Denies easy bruising Allergic/Immunologic: Allergic/Immunologic: Denies lip swelling, Denies tongue swelling and Denies wheezing PMFSH Past Medical History Medical History Apnea BMI 28.0-28.9,adult BMI 30.0-30.9,adult BMI 31.0-31.9,adult Mixed hyperlipidemia Screen for colon cancer Screening for lipid disorders Strain of lumbar region Family History Family History Father Carcinoma of colon Grandparent Family history of lung cancer Diabetes mellitus Sibling Family history of lymphoma Mother Cerebrovascular accident Sibling Heart disease Social History Social History Smoking packs per day: 0.5 Smoking cigarettes per day: 10.0 Years smoked: 20 Smoking pack-years: 10.00 Smoking status: Former smoker [facility]
[2023-03-27] MEDS: KETOROLAC (*BKC) 60 MG/2 ML VIAL IM (04:02)
[2023-03-27] MEDS: ORPHENADRINE CITRATE 30 MG/ML 2 ML VIAL 60 MG IM (04:08)
[2023-03-27] MEDS: HYDROmorphone HCL INJ (*CRX) 2 MG/ML VIAL 1 MG IM (04:44)
--- NOTE | 2023-03-27 05:21 | PC.NURSE ---
Pt c/o continued 10/10 pain after IM toradol, norflex, and dilaudid. Dr. Recinos aware. Verbal orders received for 1mg Dilaudid IV, 4mg Zofran IV, and a lumbar CT without contrast.
[2023-03-27] MEDS: ONDANSETRON INJ 4 MG/2 ML VIAL IV PUSH (05:31)
[2023-03-27] MEDS: HYDROmorphone HCL INJ (*CRX) 2 MG/ML VIAL 1 MG IV PUSH (05:31)
[2023-03-27 05:44] VITALS: BP 172/91; PULSE 82; RESP 18; O2SAT 98
== END 2023-03-27 06:38 | disposition home or self-care (01) ==
PROVIDERS: Emergency Provider Emergency Medicine; PCP Family Medicine
DX: M54.42 Lumbago with sciatica, left side (principal); E78.2 Mixed hyperlipidemia; Z87.891 Personal history of nicotine dependence
CPT/HCPCS: 72131; 96372; 96374; 96375; 99284; J1170; J1885; J2360; J2405

== ENCOUNTER 2023-03-28 09:15 | Emergency (ER) | payer MEDICARE, SELFPAY ==
[2023-03-28 09:18] VITALS: BP 167/86; PULSE 96; RESP 18; TEMP 36.6; O2SAT 93
--- NOTE | 2023-03-28 09:23 | ED.BACK ---
HPI - Back Pain/Injury General Chief Complaint: Back Pain/Injury Stated Complaint: back pain Time Seen by Provider: 03/28/23 09:19 Source: patient Mode of arrival: ambulatory Limitations: no limitations History of Present Illness HPI Narrative: This is a 68-year-old male with HTN, chronic back pain, depression who presents to the ED with chief complaint of low back pain radiating into the left lower extremity. He states this is been going on for several weeks. He has had problems with this in the distant past and resolved with physical therapy. Per chart review patient was seen at another ED yesterday and given Dilaudid and went home after that. He had a CT scan showing degenerative changes. He was advised to follow-up with PCP. Patient states he is unable to get in with his PCP for another week and is seeking pain relief. He again is not having any bowel incontinence, urinary retention, fevers, chills, numbness, weakness, saddle anesthesia. Related Data Allergies Allergy/AdvReac Type Severity Reaction Status Date / Time No Known Allergies Allergy Unknown Verified 03/27/23 03:29 Review of Systems Review of Systems: CONSTITUTIONAL: Denies fever, chills, or sweats. EYES: Denies visual changes, redness, or discharge. ENT: Denies rhinorrhea, congestion, sore throat, or otalgia. CARDIOVASCULAR: Denies chest pain, palpitations, or edema. RESPIRATORY: Denies cough or dyspnea. GASTROINTESTINAL: Denies abdominal pain, nausea, vomiting, or diarrhea. GENITOURINARY: Denies dysuria or hematuria. SKIN: Denies rash or itching. MUSCULOSKELETAL: See HPI NEUROLOGIC: Denies headache, numbness, dizziness, or weakness. PSYCHIATRIC: Denies anxiety or depression. COUNT INCLUDES THE [facility] Past Medical History Medical History Apnea BMI 28.0-28.9,adult BMI 30.0-30.9,adult BMI 31.0-31.9,adult Mixed hyperlipidemia Screen for colon cancer Screening for lipid disorders Strain of lumbar region Family History Family History Father Carcinoma of colon Grandparent Family history of lung cancer Diabetes mellitus Sibling Family history of lymphoma Mother Cerebrovascular accident Sibling Heart disease Social History Social History Smoking packs per day: 0.5 Smoking cigarettes per day: 10.0 Years smoked: 20 Smoking pack-years: 10.00 Smoking status: Former smoker Second hand tobacco smoke exposure: Yes Alcohol intake: current Drinks per week: 10 Substance use: current Substance use type: marijuana Living arrangements: alone Occupation/Education: retired Additional occupation/education comments: [employer] Gender identity (if verbalized by the patient): Male Spiritual care concerns: No Exam Narrative: GENERAL: Well-appearing, well-nourished, and in no acute distress. HEAD: Normocephalic, atraumatic. EYES: PERRLA and EOMI. ENT: Nares clear, no rhinorrhea or epistaxis. Mucous membranes moist. Oropharynx without tonsillar hypertrophy exudate or other lesions. NECK: Supple. No adenopathy or masses. CHEST: No respiratory distress. Clear to auscultation. No wheezes rales or rhonchi HEART: Regular rate and rhythm. No murmur heard. Normal peripheral pulses. ABDOMEN: Soft, nontender, nondistended, normal active bowel sounds. EXTREMITIES/SPINE: Right lumbar paraspinal tenderness. No midline tenderness. No deformities. Straight leg raise positive on the left. Normal range of motion. No edema. SKIN: Warm, dry, no rash. NEURO: Alert and oriented x3. No focal deficits. 5 out of 5 strength and sensation in the upper and lower extremities. No saddle anesthesia present. PSYCH: Normal mood and affect. Course Vital Signs Vital signs: Vital Signs Temperature 97.9 F 03/28/23 09:18 Pulse Rate 96 03/28/23 09:18 Resp
[2023-03-28] MEDS: KETOROLAC 30 MG/ML VIAL (*BKC) IM (09:50)
[2023-03-28 10:08] VITALS: BP 153/80; PULSE 76; RESP 16; O2SAT 94
== END 2023-03-28 10:08 | disposition home or self-care (01) ==
LOC: ANHED 09:56
PROVIDERS: Emergency Provider Physician Assistant; PCP Family Medicine
DX: M51.36 Other intervertebral disc degeneration, lumbar region (principal); E78.2 Mixed hyperlipidemia; Z87.891 Personal history of nicotine dependence
CPT/HCPCS: 96372; 99283; J1885

== ENCOUNTER 2023-04-13 09:55 | Outpatient (CLI) | payer MEDICARE, SELFPAY ==
--- NOTE | ~2023-04-13 | MR_ITS ---
MRI of the lumbar spine Clinical History: Back pain Technique: Axial T2-weighted images, and sagittal T1-weighted, T2-weighted, and T2 fat-sat images wer e acquired. Following intravenous administration of 20 cc MultiHance gadolinium, T1-weighted fat-sat imaging was performed in the axial and sagittal planes. Findings: No fracture identified in the lumbar spine. 3 mm retrolisthesis of L5 over S1 present. Shahnaz ral osseous lesions are present with hyperintense signal on T1-weighted and T2-weighted images, and f ocally prominent trabecula, consistent with intraosseous hemangiomas. There is extensive involvement of the T12 vertebral body and the S2 vertebral body, with mild expansion of the S2 vertebral body pos teriorly. No associated soft tissue mass or other bone marrow signal abnormality identified. At L1-L2, L2-L3, and L3-L4, there are moderate facet joint degenerative changes, without disc bulge o r herniation. No spinal canal stenosis or neural foraminal narrowing at these levels. At L4-L5, there is minimal disc bulge and mild facet arthropathy. No central canal stenosis or defini te neural foraminal narrowing. At L5-S1, there is degenerative disc narrowing with left paracentral disc bulge/protrusion and mild t o moderate facet arthropathy. There is left lateral recess stenosis with moderate to severe left neur al foraminal narrowing and moderate right neural foraminal narrowing. Paravertebral soft tissues are unremarkable. No suspicious postcontrast enhancement identified. Impression: Moderate degenerative spondylosis at L5-S1, as detailed above. 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 Reviewed, dictated and finalized at [facility]. Impression: Moderate degenerative spondylosis at L5-S1, as detailed above. Intraosseous hemangiomas, particularly involving the T12 and S2 vertebral luke s, with mild expansion of the posterior margin of the S2 vertebral body.
== END 2023-04-13 09:56 | disposition home or self-care (01) ==
PROVIDERS: PCP Family Medicine; Visit Provider Nurse Practitioner Family
DX: M54.40 Lumbago with sciatica, unspecified side (principal); M47.897 Other spondylosis, lumbosacral region
CPT/HCPCS: 72158; A9577

== ENCOUNTER 2023-05-15 08:33 | Outpatient (CLI) | payer MEDICARE, SELFPAY ==
--- NOTE | ~2023-05-15 | XR_ITS ---
EXAMINATION: XR barium swallow DATE: 05/15/2023 09:08 INDICATION: Sensation of material getting stuck in the throat with swallowing TECHNIQUE: The patient drank thick barium, gas-producing crystals, and thin barium. Fluoroscopic spot radiographs of the hypopharynx and esophagus were obtained. Fluoroscopy exposure time was minutes. COMPARISON: None. FINDINGS: The pharynx is symmetric and without evidence of mass lesion or mucosal irregularity. Contr ast is first extended period within a Zenker's diverticulum arising from the posterior hypopharynx wh ich measures 3.0 x 2.7 x 1.8 cm. The esophagus is normal without mass or stricture. Esophageal motili ty is normal. Small sliding-type hiatal hernia with gastroesophageal junction approximately 4.5 cm ce phalad to the level of the diaphragm. A single spontaneous episode of gastroesophageal reflux of a sm all amount of contrast into the mid esophagus was observed. No further gastroesophageal reflux with p rovocative maneuvers. IMPRESSION: 1. 3.0 x 2.7 x 1.8 cm Zenker's diverticulum. 2. Small sliding-type hiatal hernia with one episode of spontaneous gastroesophageal reflux of a smal l amount of contrast into the mid esophagus. Reviewed, dictated and finalized at location [facility]. IMPRESSION: 1. 3.0 x 2.7 x 1.8 cm Zenker's diverticulum. 2. Small sliding-type hiatal hernia with one episode of spontaneous gastroesoph ageal reflux of a small amount of contrast into the mid esophagus.
== END 2023-05-15 08:34 | disposition home or self-care (01) ==
LOC: CHSIMG 08:34
PROVIDERS: PCP Family Medicine; Visit Provider Family Medicine
DX: R09.89 Other specified symptoms and signs involving the circulatory and respiratory systems (principal); K22.5 Diverticulum of esophagus, acquired; K44.9 Diaphragmatic hernia without obstruction or gangrene
CPT/HCPCS: 74220

== ENCOUNTER 2023-05-18 08:13 | Emergency (ER) | payer MEDICARE, SELFPAY ==
[2023-05-18 08:13] VITALS: BP 179/97; PULSE 78; RESP 24; TEMP 36.8; O2SAT 96
--- NOTE | 2023-05-18 08:28 | ED.BACK ---
HPI - Back Pain/Injury General Chief Complaint: Back Pain/Injury Stated Complaint: lower back pain Time Seen by Provider: 05/18/23 08:21 Source: patient History of Present Illness HPI Narrative: this is a 68-year-old male with some history of chronic back pain had an MRI performed early in April which shows that he has bulging disc and stenosis, presents with some severe back pain is typical back pain with radiation into his left lower extremity with some no saddle paresthesias no fever chills. Patient has been taking [id number] medications with minimal relief. Patient is scheduled to see Neurosurgery. MD elicited complaint: back pain Onset (ago): month(s) Timing: constant Severity: moderate Pain scale (0-10): 8 Quality: dull and spasming Related Data Allergies Allergy/AdvReac Type Severity Reaction Status Date / Time No Known Allergies Allergy Unknown Verified 05/18/23 08:22 Review of Systems Review of Systems: All systems reviewed & are unremarkable except as noted in HPI and below PMFSH Past Medical History Medical History Apnea BMI 28.0-28.9,adult BMI 30.0-30.9,adult BMI 31.0-31.9,adult Mixed hyperlipidemia Screen for colon cancer Screening for lipid disorders Strain of lumbar region Family History Family History Father Carcinoma of colon Grandparent Family history of lung cancer Diabetes mellitus Sibling Family history of lymphoma Mother Cerebrovascular accident Sibling Heart disease Social History Social History Smoking packs per day: 0.5 Smoking cigarettes per day: 10.0 Years smoked: 20 Smoking pack-years: 10.00 Smoking status: Former smoker Second hand tobacco smoke exposure: Yes Alcohol intake: current Drinks per week: 10 Substance use: current Substance use type: marijuana Lack of Transportation: No Lack of Food: Never True Current Housing: I Have Housing Concerned About Future Housing: No Difficulty Paying Gas/Electric Bills: No Difficulty Paying for Meds: No Currently Unemployed: No Education: Trade/Vocational Certificate Difficulty w/ Childcare or Family Care: No Living arrangements: alone Occupation/Education: retired Additional occupation/education comments: [employer] Gender identity (if verbalized by the patient): Male Spiritual care concerns: No Exam Const: General: healthy appearing and no acute distress Neck: Neck: normal visual inspection, no lymphadenopathy and no meningeal signs Chest: Chest palpation & inspection: normal inspection of the chest Resp: Effort & Inspection: normal respiratory effort Cardio: Rate: regular rate Rhythm: regular rhythm : General: Yes bladder normal to palpation Urinary Catheter: Urinary Catheter: patent and draining Skin: Rashes: no rashes Wounds: no wounds Neuro: General: patient oriented x3, moves all extremities and no meningeal signs Extrem: Other: Positive straight leg raising test on the left. Psych: Mental Status: mental status grossly normal Affect: normal affect Attitude: cooperative Course Course Emergency Course: Patient received IM Toradol 60mg which offered moderate relief after reassessment. Patient has had lumbar MRI performed in early April which shows mild bulging disc and is scheduled to see neuro surgery. Vital Signs Vital signs: Vital Signs Temperature 36.8 C 05/18/23 08:13 Pulse Rate 78 05/18/23 08:13 Respiratory Rate 24 H 05/18/23 08:13 Blood Pressure 179/97 H 05/18/23 08:13 Pulse Oximetry 96 05/18/23 08:13 Oxygen Delivery Room Air 05/18/23 08:13 Temperature 36.8 C 05/18/23 08:13 Pulse Rate 78 05/18/23 08:13 Respiratory Rate 24 H 05/18/23 08:13 Blood Pressure 179/97 H 05/18/23 08:13 Pulse Ox
[2023-05-18] MEDS: KETOROLAC (*BKC) 60 MG/2 ML VIAL IM (08:31)
[2023-05-18 08:53] VITALS: BP 181/100; PULSE 73; RESP 17; TEMP 36.8; O2SAT 95
== END 2023-05-18 08:57 | disposition home or self-care (01) ==
PROVIDERS: Emergency Provider Emergency Medicine; PCP Family Medicine
DX: M54.42 Lumbago with sciatica, left side (principal); E78.2 Mixed hyperlipidemia; Z87.891 Personal history of nicotine dependence
CPT/HCPCS: 96372; 99283; J1885

== ENCOUNTER 2023-06-08 07:53 | Day surgery (SDC) | payer MEDICARE, SELFPAY ==
[2023-05-24 08:20] VITALS: BMI 31.2
--- NOTE | 2023-06-07 13:53 | P.PNAN_ITS ---
Anes - Initial Pre Proc Eval Procedure: Operation Date: 06/08/23 09:30 Proposed Procedures p Esophagogastroduodenoscopy - Stewart Smart MD Date/Time: 06/07/23 13:53 Surgeon: Stewart Smart MD Pre Op Diagnosis: Dysphagia Patient Data Age: 68 Gender: M Height: 1.83 m Weight: 104.5 kg Allergies Allergy/AdvReac Type Severity Reaction Status Date / Time No Known Allergies Allergy Unknown Verified 06/08/23 08:10 Home Medications Medication Instructions Recorded Confirmed Type losartan 25 mg tablet See Rx Instructions .Route 01/27/23 06/08/23 Rx .COMPLEX #30 tabs cyclobenzaprine 5 mg tablet 5 mg PO TID #10 tabs 05/18/23 06/08/23 Rx tramadol 50 mg tablet 50 mg PO Q6H PRN pain #20 tabs 05/18/23 06/08/23 Rx Patient hx anesthesia problems: none Family hx anesthesia problems: none Results Review: All pre-operative results and documents have been reviewed as part of the pre- operative evaluation. [facility] Past Medical History Medical History (Updated 06/07/23 @ 13:53 by Woody Zheng DO) Apnea BMI 28.0-28.9,adult BMI 30.0-30.9,adult BMI 31.0-31.9,adult Hepatitis Hypertension Mixed hyperlipidemia Screen for colon cancer Screening for lipid disorders Strain of lumbar region Family History Family History Father Carcinoma of colon Grandparent Family history of lung cancer Diabetes mellitus Sibling Family history of lymphoma Mother Cerebrovascular accident Sibling Heart disease Social History Social History Smoking packs per day: 0.5 Smoking cigarettes per day: 10.0 Years smoked: 20 Smoking pack-years: 10.00 Smoking status: Former smoker Tobacco type: cigarettes Second hand tobacco smoke exposure: Yes Alcohol intake: current Drinks per week: 10 Alcohol use details: socially Substance use: never Substance use type: does not use Lack of Transportation: No Lack of Food: Never True Current Housing: I Have Housing Concerned About Future Housing: No Difficulty Paying Gas/Electric Bills: No Difficulty Paying for Meds: No Currently Unemployed: No Education: Trade/Vocational Certificate Difficulty w/ Childcare or Family Care: No Living arrangements: alone Occupation/Education: retired Additional occupation/education comments: [employer] Gender identity (if verbalized by the patient): Male Spiritual care concerns: No Anes - Eval Final PreProcedure Day of Procedure 06/07/23 13:53 Patient weight: obese Heart: regular rate and rhythm Lungs: clear to auscultation Airway: Mallampati scale class II Neurological: alert and oriented Last oral intake: >/= 8 hours ASA classification: III Emergent: no Anesthetic plan: proceed Anesthesia type and monitoring: general GIVS and standard monitoring Results Review: All pre-operative results and documents have been reviewed as part of the pre- operative evaluation. Informed Consent: The patient's anesthetic plan and its attendant risks and benefits were discussed with the patient/family/POA. Questions were solicited and answers provided to the satisfaction of the patient/family/POA.
--- NOTE | 2023-06-07 22:03 | PM.HPGS ---
History of Present Illness History of Present Illness Consent: Risks, benefits, and alternatives have been discussed and questions answered. Patient agrees to proceed with procedure. Chief complaint: Dysphagia Narrative: Nikolay Ragland is a 68 year old male swallowing problems.For several years he would intermittently feel that food is not going down.? Last week it happened with the hot dog.? It is usually bread or meat that seems to get caught? in the throat? sometimes he can actually expectorate it. For 2 weeks now he has had a 'lump in throat' sensation. Review of Systems Review of Systems: All systems reviewed & are unremarkable except as noted in HPI and below PMFSH Past Medical History Medical History Apnea BMI 28.0-28.9,adult BMI 30.0-30.9,adult BMI 31.0-31.9,adult Hepatitis Hypertension Mixed hyperlipidemia Screen for colon cancer Screening for lipid disorders Strain of lumbar region Family History Family History Father Carcinoma of colon Grandparent Family history of lung cancer Diabetes mellitus Sibling Family history of lymphoma Mother Cerebrovascular accident Sibling Heart disease Social History Social History Smoking packs per day: 0.5 Smoking cigarettes per day: 10.0 Years smoked: 20 Smoking pack-years: 10.00 Smoking status: Former smoker Tobacco type: cigarettes Second hand tobacco smoke exposure: Yes Alcohol intake: current Drinks per week: 10 Alcohol use details: socially Substance use: never Substance use type: does not use Lack of Transportation: No Lack of Food: Never True Current Housing: I Have Housing Concerned About Future Housing: No Difficulty Paying Gas/Electric Bills: No Difficulty Paying for Meds: No Currently Unemployed: No Education: Trade/Vocational Certificate Difficulty w/ Childcare or Family Care: No Living arrangements: alone Occupation/Education: retired Additional occupation/education comments: [employer] Gender identity (if verbalized by the patient): Male Spiritual care concerns: No Meds Home Medications and Allergies Home Medications Medication Instructions Recorded Confirmed Type losartan 25 mg tablet See Rx Instructions .Route 01/27/23 06/08/23 Rx .COMPLEX #30 tabs cyclobenzaprine 5 mg tablet 5 mg PO TID #10 tabs 05/18/23 06/08/23 Rx tramadol 50 mg tablet 50 mg PO Q6H PRN pain #20 tabs 05/18/23 06/08/23 Rx Allergies Allergy/AdvReac Type Severity Reaction Status Date / Time No Known Allergies Allergy Unknown Verified 06/08/23 08:10 Exam Const: General: alert Orientation/consciousness: patient oriented x3 Resp: Auscultation: clear to auscultation bilaterally Cardio: Rhythm: regular rhythm GI: GI Palp: Yes Soft to palpation and No Tenderness to palpation present (GI) Neuro: General: patient oriented x3 Assessment and Plan Assessment and plan (1) Dysphagia: Code(s): R13.10 - Dysphagia, unspecified Status: Acute Assessment and Plan: EGD with possible biopsy or dilatation or cautery.
[2023-06-08 08:12] VITALS: BP 148/89; PULSE 72; RESP 16; TEMP 36.4; O2SAT 98
[2023-06-08] MEDS: LACTATED RINGERS 1,000 ML 150 ML IV CONT (08:21)
[2023-06-08 09:28] VITALS: BP 116/51; PULSE 90; RESP 20; O2SAT 97
[2023-06-08 09:38] VITALS: BP 117/76; PULSE 85; RESP 20; O2SAT 97
[2023-06-08 09:51] VITALS: BP 130/82; PULSE 68; RESP 18; O2SAT 95
[2023-06-08 09:58] VITALS: BP 144/83; PULSE 60; RESP 18; O2SAT 97
--- NOTE | 2023-06-08 10:54 | WPDANESPN ---
Anes - Prog Note Post-Op Date/Time: 06/08/23 10:54 Cardiovascular status: normal Respiratory status: normal Airway patency: baseline Mental status: baseline Post-Op hydration status: normal Vital Signs: Last Vital Signs Temp 36.4 C 06/08/23 08:12 Pulse 60 06/08/23 09:58 Resp 18 06/08/23 09:58 BP 144/83 H 06/08/23 09:58 Pulse Ox 97 06/08/23 09:58 O2 Del Method Room Air 06/08/23 09:58 Pain Score (VAS): 0 I/O: Intake & Output 06/07/23 06/08/23 06/08/23 23:59 07:59 15:59 Intake Total 600 Balance 600 Post-procedural complaints: none Patient Feedback: Patient satisfied with anesthetic care. Other Findings: Patient vital signs back to baseline. Patient denies nausea and vomiting. Patient's pain under control. Patient OK for discharge.
== END 2023-06-08 10:15 | disposition home or self-care (01) ==
PROVIDERS: PCP Family Medicine; Visit Provider Internal Medicine Gastroenterology
PROC: 0DJ08ZZ Inspection of Upper Intestinal Tract, Via Natural or Artificial Opening Endoscopic (ICD-10-PCS; CPT 43235; principal; 2023-06-08 09:30)
DX: K22.2 Esophageal obstruction (principal); R13.19 Other dysphagia; K29.70 Gastritis, unspecified, without bleeding; K44.9 Diaphragmatic hernia without obstruction or gangrene
CPT/HCPCS: 43249; 43239

== ENCOUNTER 2023-06-08 08:00 | Outpatient (NON) | payer MEDICARE, SELFPAY | END 2023-06-08 08:01 | disposition home or self-care (01) | LOC: ANHLAB 06-09 10:08 | PROVIDERS: PCP Family Medicine; Visit Provider Internal Medicine Gastroenterology | DX: R13.10 Dysphagia, unspecified (principal); K20.80 Other esophagitis without bleeding | CPT/HCPCS: 88305; 88313 ==

== ENCOUNTER 2023-08-10 06:21 | Day surgery (SDC) | payer MEDICARE, SELFPAY ==
[2023-06-13 11:05] VITALS: BMI 31.2
[2023-07-24 11:12] VITALS: BMI 31.1
--- NOTE | 2023-08-09 15:25 | PM.HPGS ---
History of Present Illness History of Present Illness Consent: Risks, benefits, and alternatives have been discussed and questions answered. Patient agrees to proceed with procedure. Chief complaint: Esophageal Stricture Narrative: Nikolay Ragland is a 68 year old male With dysphagia. He had dilatation of a severe stricture about 8 weeks ago. He returns now for further treatment, hopefully being able to dilate him further. Review of Systems Review of Systems: All systems reviewed & are unremarkable except as noted in HPI and below PMFSH Past Medical History Medical History Apnea BMI 28.0-28.9,adult BMI 30.0-30.9,adult BMI 31.0-31.9,adult Hepatitis Hypertension Mixed hyperlipidemia Screen for colon cancer Screening for lipid disorders Strain of lumbar region Family History Family History Father Carcinoma of colon Grandparent Family history of lung cancer Diabetes mellitus Sibling Family history of lymphoma Mother Cerebrovascular accident Sibling Heart disease Social History Social History Smoking packs per day: 0.5 Smoking cigarettes per day: 10.0 Years smoked: 20 Smoking pack-years: 10.00 Smoking status: Former smoker Tobacco type: cigarettes Second hand tobacco smoke exposure: Yes Alcohol intake: current Drinks per week: 10 Alcohol use details: socially Substance use: never Substance use type: does not use Lack of Transportation: No Lack of Food: Never True Current Housing: I Have Housing Concerned About Future Housing: No Difficulty Paying Gas/Electric Bills: No Difficulty Paying for Meds: No Currently Unemployed: No Education: Trade/Vocational Certificate Difficulty w/ Childcare or Family Care: No Living arrangements: alone Occupation/Education: retired Additional occupation/education comments: [employer] Gender identity (if verbalized by the patient): Male Spiritual care concerns: No Meds Home Medications and Allergies Home Medications Medication Instructions Recorded Confirmed Type losartan 25 mg tablet See Rx Instructions .Route 01/27/23 08/10/23 Rx .COMPLEX #30 tabs pantoprazole 40 mg tablet,delayed 40 mg PO QAM #30 tabs 06/08/23 08/10/23 Rx release Allergies Allergy/AdvReac Type Severity Reaction Status Date / Time No Known Allergies Allergy Unknown Verified 08/10/23 07:07 Exam Const: General: alert Orientation/consciousness: patient oriented x3 Resp: Auscultation: clear to auscultation bilaterally Cardio: Rhythm: regular rhythm GI: GI Palp: Yes Soft to palpation and No Tenderness to palpation present (GI) Neuro: General: patient oriented x3 Assessment and Plan Assessment and plan (1) Dysphagia: Code(s): R13.10 - Dysphagia, unspecified Status: Acute Assessment and Plan: EGD with possible biopsy or dilatation or cautery.
--- NOTE | 2023-08-10 07:14 | P.PNAN_ITS ---
Anes - Initial Pre Proc Eval Procedure: Operation Date: 08/10/23 08:30 Proposed Procedures p Esophagogastroduodenoscopy - Stewart Smart MD Date/Time: 08/10/23 07:14 Surgeon: Stewart Smart MD Pre Op Diagnosis: Esophageal Stricture Patient Data Age: 68 Gender: M Height: 1.83 m Weight: 104.326 kg Allergies Allergy/AdvReac Type Severity Reaction Status Date / Time No Known Allergies Allergy Unknown Verified 08/10/23 07:07 Home Medications Medication Instructions Recorded Confirmed Type losartan 25 mg tablet See Rx Instructions .Route 01/27/23 08/10/23 Rx .COMPLEX #30 tabs pantoprazole 40 mg tablet,delayed 40 mg PO QAM #30 tabs 06/08/23 08/10/23 Rx release Patient hx anesthesia problems: none Family hx anesthesia problems: none Results Review: All pre-operative results and documents have been reviewed as part of the pre- operative evaluation. [facility] Past Medical History Medical History Apnea BMI 28.0-28.9,adult BMI 30.0-30.9,adult BMI 31.0-31.9,adult Hepatitis Hypertension Mixed hyperlipidemia Screen for colon cancer Screening for lipid disorders Strain of lumbar region Family History Family History Father Carcinoma of colon Grandparent Family history of lung cancer Diabetes mellitus Sibling Family history of lymphoma Mother Cerebrovascular accident Sibling Heart disease Social History Social History Smoking packs per day: 0.5 Smoking cigarettes per day: 10.0 Years smoked: 20 Smoking pack-years: 10.00 Smoking status: Former smoker Tobacco type: cigarettes Second hand tobacco smoke exposure: Yes Alcohol intake: current Drinks per week: 10 Alcohol use details: socially Substance use: never Substance use type: does not use Lack of Transportation: No Lack of Food: Never True Current Housing: I Have Housing Concerned About Future Housing: No Difficulty Paying Gas/Electric Bills: No Difficulty Paying for Meds: No Currently Unemployed: No Education: Trade/Vocational Certificate Difficulty w/ Childcare or Family Care: No Living arrangements: alone Occupation/Education: retired Additional occupation/education comments: [employer] Gender identity (if verbalized by the patient): Male Spiritual care concerns: No Anes - Eval Final PreProcedure Day of Procedure 08/10/23 07:14 Patient weight: obese Heart: regular rate and rhythm Lungs: clear to auscultation Airway: Mallampati scale class II Neurological: alert and oriented Last oral intake: >/= 8 hours ASA classification: III Emergent: no Anesthetic plan: proceed Anesthesia type and monitoring: general GIVS and standard monitoring Results Review: All pre-operative results and documents have been reviewed as part of the pre- operative evaluation. Informed Consent: The patient's anesthetic plan and its attendant risks and benefits were discussed with the patient/family/POA. Questions were solicited and answers provided to the satisfaction of the patient/family/POA.
[2023-08-10 07:15] VITALS: BMI 31.9
[2023-08-10 07:16] VITALS: BP 149/81; PULSE 67; RESP 16; TEMP 36.3; O2SAT 98
[2023-08-10] MEDS: LACTATED RINGERS 1,000 ML 150 ML IV CONT (07:28)
[2023-08-10 08:09] VITALS: BP 138/80; PULSE 85; RESP 18; O2SAT 95
[2023-08-10 08:19] VITALS: BP 121/71; PULSE 69; RESP 17; O2SAT 98
[2023-08-10 08:29] VITALS: BP 132/83; PULSE 63; RESP 18; O2SAT 99
--- NOTE | 2023-08-10 11:35 | WPDANESPN ---
Anes - Prog Note Post-Op Date/Time: 08/10/23 11:35 Cardiovascular status: normal Respiratory status: normal Airway patency: baseline Mental status: baseline Post-Op hydration status: normal Vital Signs: Last Vital Signs Temp 36.3 C L 08/10/23 07:16 Pulse 63 08/10/23 08:29 Resp 18 08/10/23 08:29 BP 132/83 08/10/23 08:29 Pulse Ox 99 08/10/23 08:29 O2 Del Method Room Air 08/10/23 08:29 Pain Score (VAS): 0 I/O: Intake & Output 08/09/23 08/10/23 08/10/23 23:59 07:59 15:59 Intake Total 400 Balance 400 Post-procedural complaints: none Patient Feedback: Patient satisfied with anesthetic care. Other Findings: Patient vital signs back to baseline. Patient denies nausea and vomiting. Patient's pain under control. Patient OK for discharge.
== END 2023-08-10 08:48 | disposition home or self-care (01) ==
PROVIDERS: PCP Family Medicine; Visit Provider Internal Medicine Gastroenterology
PROC: 0DJ08ZZ Inspection of Upper Intestinal Tract, Via Natural or Artificial Opening Endoscopic (ICD-10-PCS; CPT 43235; principal; 2023-08-10 08:30)
DX: K22.2 Esophageal obstruction (principal); R13.19 Other dysphagia; K44.9 Diaphragmatic hernia without obstruction or gangrene; K22.5 Diverticulum of esophagus, acquired
CPT/HCPCS: 43249

== ENCOUNTER 2024-01-25 15:39 | Outpatient (CLI) | payer MEDICARE, SELFPAY ==
--- NOTE | ~2024-01-25 | XR_ITS ---
EXAMINATION: XR chest 2V 01/25/2024 16:01 INDICATION: Subacute cough for 2 months PROCEDURE: 2 view chest COMPARISON: No prior studies for comparison. FINDINGS: The lungs are clear. The cardiomediastinal silhouette is within normal limits. There are no pleural effusions. There is no pneumothorax suspected. IMPRESSION: 1: NO ACUTE CARDIOPULMONARY DISEASE. Reviewed, dictated and finalized at location A.
== END 2024-01-25 15:40 | disposition home or self-care (01) ==
PROVIDERS: PCP Family Medicine; Visit Provider Family Medicine
DX: R05.2 Subacute cough (principal)
CPT/HCPCS: 71046

== ENCOUNTER 2024-07-29 11:41 | Outpatient (CLI) | payer MEDICARE, SELFPAY ==
--- NOTE | ~2024-07-29 | XR_ITS ---
XR shoulder LT min 2V Ordering provider: Nicolas Spann MD History: . pain x 1 month NKI . Comparison: None. FINDINGS: BONES: No acute fracture or dislocation. Degenerative changes in the area of the greater tuberosity. JOINT SPACES: The acromioclavicular joint is normal. The glenohumeral joint is normal. SOFT TISSUES: Normal. IMPRESSION: No acute osseous abnormality left shoulder. Reviewed, dictated and finalized at location A.
== END 2024-07-29 11:42 | disposition home or self-care (01) ==
LOC: CHSIMG 11:42
PROVIDERS: PCP Family Medicine; Visit Provider Family Medicine
DX: M25.512 Pain in left shoulder (principal)
CPT/HCPCS: 73030

== ENCOUNTER 2024-08-08 08:11 | Outpatient (CLI) | payer MEDICARE, SELFPAY ==
--- NOTE | ~2024-08-08 | MR_ITS ---
EXAMINATION: MR brain/brain stem wo/w con DATE: 08/08/2024 09:20 INDICATION: Unspecified intractable tension-type headache. TECHNIQUE: Magnetic resonance imaging (MRI) of the brain and brainstem was performed without and with 20 mL Multihance intravenous contrast. Sequences included sagittal and axial T1-weighted SE, axial d iffusion-weighted FS SE, axial T2*-weighted GRE, axial T2-weighted FLAIR, and axial T2-weighted FSE. Postcontrast axial and coronal T1-weighted SE was obtained. Apparent diffusion coefficient (ADC) maps were created. COMPARISON: None. FINDINGS: There are no areas of restricted diffusion to suggest acute infarction. No intracranial hemorrhage or abnormal intracranial mass lesion. There are a few scattered areas of nonspecific increased T2-weigh paco signal intensity in the cerebral white matter, predominantly involving the deep and periventricul ar white matter which is within normal limits for age. There are no intraparenchymal signal abnormali ties seen on the other pulse sequences. The ventricles are symmetric and normal in size. There are no abnormal extra-axial fluid collections. Flow voids are seen in the cerebral arteries on the T2-weigh paco sequences consistent with their expected patency. There is diffuse mild mucosal thickening throug hout the paranasal sinuses. Visualized orbits and soft tissues are unremarkable. There are no areas o f abnormal enhancement on the post contrast images. IMPRESSION: 1. Normal aging brain with mild scattered nonspecific white matter T2 hyperintensity which is within normal limits and likely sequela of chronic small vessel ischemic disease. Reviewed, dictated and finalized at location A. IMPRESSION: 1. Normal aging brain with mild scattered nonspecific white matter T2 hyperinte nsity which is within normal limits and likely sequela of chronic small vessel ischemic disease.
== END 2024-08-08 08:12 | disposition home or self-care (01) ==
LOC: CHSIMG 08:14
PROVIDERS: PCP Family Medicine; Visit Provider Family Medicine
DX: G44.201 Tension-type headache, unspecified, intractable (principal)
CPT/HCPCS: 70553; A9577

== ENCOUNTER 2025-09-17 07:59 | Outpatient (CLI) | payer MEDICARE, SELFPAY ==
--- NOTE | ~2025-09-17 | CT_ITS ---
Exam: CT chest without contrast Clinical History: [Nicotine dependence, cigarettes uncomplicated ] Comparison: [ None available] Technique: Multiple axial CT images of the chest without with IV contrast. Sagittal and coronal reformatted images were obtained. FINDINGS: Lungs and pleura: [ Tracheobronchial tree is patent.] No pneumothorax. No pleural effusion. No pulmonary mass. There is a 4 mm noncalcified pulmonary nodule in the left upper lobe. There is a 4 mm noncalcified pulmonary nodule in the left lower lobe. There is a 7 mm pulmonary nodule along the right minor fissure. There are several small to moderate-sized groundglass opacities in the right upper lobe. There is a 5 mm pulmonary nodule in the right upper lobe. Mediastinum and pulmonary zainab: [ No mass or adenopathy.] Axillary/intramammary and supraclavicular: [ No mass or adenopathy.] Heart and great vessels: [ Normal heart size.[ [ No pericardial effusion.] [ No aneurysm.] There are a few coronary artery calcifications. Mild atherosclerotic disease in the thoracic aorta. Chest Wall: [ Unremarkable.] Upper Abdomen: There is a 3.4 cm indeterminate left renal lesion. There is a too small to characterize low-attenuation lesion in the left kidney. A renal mass CT is recommended. Indeterminant 2.2 cm low-density lesion in the left lobe of the liver near the liver dome. Small hiatal hernia. Osseous structures: [ No acute fracture.] [ Multilevel degenerative change in the visualized spine.] There is a 5 mm sclerotic lesion in the T4 vertebral body. There is a 5 mm sclerotic lesion in the T5 vertebral body. Additional findings: There is a 1.3 cm nodule in the right thyroid lobe. IMPRESSION: 1. There are several small to moderate-sized groundglass opacities in the right upper lobe. The findings may be secondary to an inflammatory/infectious process. Other etiologies are possible. Recommend follow-up to resolution. A follow-up chest CT in 3 months is recommended. 2. There are bilateral pulmonary nodules, the largest measures 7 mm. A follow-up chest CT in 3 months is recommended. 3. There is a 3.4 cm indeterminate left renal lesion. There is a too small to characterize low-attenuation lesion in the left kidney. A renal mass CT is recommended. 4. Indeterminant 2.2 cm low-density lesion in the left lobe of the liver near the liver dome. Attention on follow-up CT imaging. 5. Small hiatal hernia. 6. There is a 1.3 cm nodule in the right thyroid lobe. A thyroid ultrasound is recommended. 7. There is a 5 mm sclerotic lesion in the T4 vertebral body. There is a 5 mm sclerotic lesion in the T5 vertebral body. A total body bone scan is recommended. Reviewed, dictated and finalized at location Q. REHABILITATION IMPRESSION: 1. There are several small to moderate-sized groundglass opacities in the right upper lobe. The findings may be secondary to an inflammatory/infectious proces s. Other etiologies are possible. Recommend follow-up to resolution. A follow-u p chest CT in 3 months is recommended. 2. There are bilateral pulmonary nodules, the largest measures 7 mm. A follow-u p chest CT in 3 months is recommended. 3. There is a 3.4 cm indeterminate left renal lesion. There is a too small to c haracterize low-attenuation lesion in the left kidney. A renal mass CT is recom mended. 4. Indeterminant 2.2 cm low-density lesion in the left lobe of the liver near t he liver dome. Attention on follow-up CT imaging. 5. Small hiatal hernia. 6. There is a 1.3 cm nodule in the right thyroid lobe. A thyroid ultrasound is recommended. 7. There is a 5 mm sclerotic lesion in the T4 vertebral body. There is a 5 mm s clerotic lesion in the T5 vertebral body. A total body bone scan is recommended .
== END 2025-09-17 08:00 | disposition home or self-care (01) ==
PROVIDERS: PCP Family Medicine; Visit Provider Family Medicine
DX: Z12.2 Encounter for screening for malignant neoplasm of respiratory organs (principal); Z87.891 Personal history of nicotine dependence; R91.8 Other nonspecific abnormal finding of lung field; N28.9 Disorder of kidney and ureter, unspecified; M89.9 Disorder of bone, unspecified; E04.1 Nontoxic single thyroid nodule; K44.9 Diaphragmatic hernia without obstruction or gangrene
CPT/HCPCS: 71271

== ENCOUNTER 2025-10-02 08:17 | Outpatient (CLI) | payer MEDICARE, SELFPAY ==
--- NOTE | ~2025-10-02 | CT_ITS ---
EXAM/PROCEDURE: CT abdomen wo/w con HISTORY: RENAL MASS COMPARISON: None available. TECHNIQUE: IV contrast enhanced CT of abdomen and pelvis performed. FINDINGS: 3.1 cm lower pole right renal cyst appears simple. Subcentimeter low-density lesions also present in the mid and lower poles of the right kidney too small to definitively characterize. In the left kidney, to 10 mm size cystic lesions in the upper pole, and a 2.6 cm simple cyst in the midpole. 1.2 cm simple cyst in the lower pole of the left kidney. 5 mm low-density lesion lower pole of the left kidney too small to characterize. 1.8 cm cystic-appearing lesion in the left lobe of the liver image 31 series 6. The remainder of the liver spleen pancreas stomach and adrenal glands appear normal. Normal size appendix and aorta as well as gallbladder. No bulky lymphadenopathy or masses seen. Mildly enlarged prostate. Urinary bladder is nondistended and unopacified not well visualized but no obvious abnormality seen. The bowel gas pattern is nonobstructive with no free air free fluid or pneumatosis. Tiny fat-containing bilateral hernias. Lung bases are clear. Heart size normal. Degenerative changes throughout the bones with no acute or aggressive bony lesion. IMPRESSION: 1. Bilateral renal lesions most of which appear to be simple cysts, though some such as the upper pole 10 mm size lesions in the left kidney are not definitively characterized. Correlate with follow-up renal CT or abdominal MRI in 6 months. 2. Other chronic findings as above. Reviewed, dictated and finalized at location A. E [facility] IMPRESSION: 1. Bilateral renal lesions most of which appear to be simple cysts, though some such as the upper pole 10 mm size lesions in the left kidney are not definitiv martin characterized. Correlate with follow-up renal CT or abdominal MRI in 6 franci hs. 2. Other chronic findings as above.
[2025-10-02 08:43] LABS: Estimated Glomerular Filt Rate > 60
== END 2025-10-02 08:18 | disposition home or self-care (01) ==
LOC: CHSIMG 08:18
PROVIDERS: PCP Family Medicine; Visit Provider Family Medicine
DX: N28.9 Disorder of kidney and ureter, unspecified (principal)
CPT/HCPCS: 74170; Q9967